=== PATIENT | male | born 1990 | race Caucasian/White ===

== ENCOUNTER → 2022-01-18 | Outpatient (CLI) | payer OTHER, MEDICARE ==
[~2022-01-18] MED LIST: ARIP10 PO; ARIP20 PO; ATEN25 PO; CITA20 PO; Cephalexin500 MG PO; FLUV50 PO; Fluvoxamine Ma100 MG PO; HYDACE5 PO; LEVSOD75 PO; LITH300C PO; LORA10ER PO; METO25ER PO; MONT10T PO; RANI150 PO
[2022-01-18 13:27] LABS: Albumin, Blood 3.7 g/dL (3.4-5.0); Albumin/Globulin Ratio 0.9 (0.8-1.8); Bilirubin, Total 0.4 mg/dL (0.1-1.0); Calcium, Blood 10.1 mg/dL (8.5-10.1); Creatinine, Blood 1.55 mg/dL (0.60-1.20); Free Thyroxine 2.17 ng/dL (0.70-1.60); Globulin, Blood 4.3 g/dL (2.2-4.0); Potassium, Blood 4.8 mmol/L (3.5-5.5); Thyroid Stimulating Hormone 0.016 uIU/mL (0.360-4.800)
[2022-01-18 15:30] LABS: Lithium 3.42 mmol/L (0.60-1.20)
[2022-01-19 07:11] LABS: HBSAG SCREEN Negative (Negative); HCV ANTIBODY <0.1 (0.0-0.9)
== END | disposition home or self-care (01) ==
LOC: LAB SHORT 13:03 → LAB 13:03
PROVIDERS: Physician Assistant Medical
DX: R25.1 Tremor, unspecified (principal); R89.2 Abnormal level of other drugs, medicaments and biological substances in specimens from other organs, systems and tissues; Z79.899 Other long term (current) drug therapy
CPT/HCPCS: 80053; 80178; 84439; 84443; 84481; 86803; 87340

== ENCOUNTER → 2022-01-20 | Outpatient (CLI) | payer OTHER, MEDICARE ==
[2022-01-20 09:17] LABS: Bun/Creatinine Ratio 21.8 (12.0-20.0); Calcium, Blood 9.8 mg/dL (8.5-10.1); Creatinine, Blood 0.87 mg/dL (0.60-1.20); Potassium, Blood 4.6 mmol/L (3.5-5.5)
[2022-01-20 10:37] LABS: Lithium 1.54 mmol/L (0.60-1.20)
== END | disposition home or self-care (01) ==
LOC: LAB SHORT 09:04 → LAB 09:04
PROVIDERS: General Practice
DX: R89.2 Abnormal level of other drugs, medicaments and biological substances in specimens from other organs, systems and tissues (principal)
CPT/HCPCS: 80048; 80178

== ENCOUNTER → 2022-03-21 | Outpatient (CLI) | payer OTHER, MEDICARE ==
[2022-03-21 18:47] LABS: Bacteria Rare /hpf; Red Blood Cells, Urine Not Seen /hpf (0-2); Squamous Epithelial Cells Rare /hpf (Few)
[2022-03-21 18:51] LABS: BASOPHILS ABSOLUTE AUTO 0.04 K/mm3 (0.00-0.23); BASOPHILS PERCENT AUTO 1 % (0-2); EOSINOPHILS ABSOLUTE AUTO 0.18 K/mm3 (0.00-0.68); EOSINOPHILS PERCENT AUTO 3 % (0-6); Hematocrit 37.1 % (37.0-53.0); Hemoglobin 12.2 g/dL (13.5-17.5); IMMATURE GRAN ABSOLUTE AUTO 0.04 K/mm3 (0.00-0.10); IMMATURE GRAN PERCENT AUTO 1 % (0-1); LYMPHOCYTES ABSOLUTE AUTO 0.78 K/mm3 (0.84-5.20); LYMPHOCYTES PERCENT AUTO 11 % (21-46); MONOCYTES ABSOLUTE AUTO 1.08 K/mm3 (0.16-1.47); MONOCYTES PERCENT AUTO 15 % (4-13); Mean Corpuscular HGB 28.3 pg (26.0-34.0); Mean Corpuscular HGB Conc 32.9 g/dL (31.5-36.5); Mean Corpuscular Volume 86 fL (80-100); Mean Platelet Volume 11.1 fL (9.1-12.4); NEUTROPHILS PERCENT AUTO 71 % (41-73); Platelet Count 299 K/mm3 (150-400); RDW Standard Deviation 43.9 fL (35.1-46.3); Red Blood Cell Count 4.31 M/mm3 (4.30-5.90); White Blood Cell Count 7.22 K/mm3 (4.00-11.30)
[2022-03-21 18:59] LABS: Bun/Creatinine Ratio 16.8 (12.0-20.0); Calcium, Blood 9.9 mg/dL (8.5-10.1); Creatinine, Blood 1.07 mg/dL (0.60-1.20); Potassium, Blood 3.6 mmol/L (3.5-5.5)
== END | disposition home or self-care (01) ==
LOC: LAB 18:40 → LAB SHORT 18:40
PROVIDERS: Physician Assistant Medical
DX: R10.84 Generalized abdominal pain (principal); R30.9 Painful micturition, unspecified; R82.79 Other abnormal findings on microbiological examination of urine
CPT/HCPCS: 80048; 81015; 85025; 87086

== ENCOUNTER 2023-04-29 11:23 | Observation (INO) | payer OTHER, MEDICARE ==
[~2023-04-29] VITALS: Ht 175.3 cm; Wt 136.1 kg
[2023-04-29] MEDS ORDERED: FLUV50 (12:31)
[2023-04-29] MEDS ORDERED: Naltrexone HCl50 MG PO (12:31)
[2023-04-29] MEDS ORDERED: METF500 (12:31)
[2023-04-29] MEDS ORDERED: METPHE10 PO (12:32)
[2023-04-29] MEDS ORDERED: QUET100 PO (12:32)
[2023-04-29] MEDS ORDERED: PARO20 (12:32)
[2023-04-29] MEDS ORDERED: ESCI20 PO (12:32)
[2023-04-29] MEDS ORDERED: VENL150ER PO (12:33)
[2023-04-29 13:05] LABS: Ethanol (Alcohol), Blood, Med <3 mg/dL; Salicylate <1.7 mg/dL (2.8-20.0); Thyroxine (T4) 5.8 ug/dL (4.5-12.1)
[2023-04-29 13:10] LABS: BASOPHILS ABSOLUTE AUTO 0.07 K/mm3 (0.00-0.23); BASOPHILS PERCENT AUTO 1 % (0-2); EOSINOPHILS ABSOLUTE AUTO 0.27 K/mm3 (0.00-0.68); EOSINOPHILS PERCENT AUTO 3 % (0-6); Hematocrit 43.4 % (37.0-53.0); Hemoglobin 14.9 g/dL (13.5-17.5); IMMATURE GRAN ABSOLUTE AUTO 0.06 K/mm3 (0.00-0.10); IMMATURE GRAN PERCENT AUTO 1 % (0-1); LYMPHOCYTES ABSOLUTE AUTO 1.49 K/mm3 (0.84-5.20); LYMPHOCYTES PERCENT AUTO 17 % (21-46); MONOCYTES ABSOLUTE AUTO 0.65 K/mm3 (0.16-1.47); MONOCYTES PERCENT AUTO 7 % (4-13); Mean Corpuscular HGB 29.5 pg (26.0-34.0); Mean Corpuscular HGB Conc 34.3 g/dL (31.5-36.5); Mean Corpuscular Volume 86 fL (80-100); Mean Platelet Volume 11.5 fL (9.1-12.4); NEUTROPHILS ABSOLUTE AUTO 6.39 K/mm3 (1.96-9.15); NEUTROPHILS PERCENT AUTO 72 % (41-73); Platelet Count 297 K/mm3 (150-400); RDW Coefficient Variation 13.4 % (11.7-14.2); RDW Standard Deviation 41.6 fL (35.1-46.3); Red Blood Cell Count 5.05 M/mm3 (4.30-5.90); White Blood Cell Count 8.93 K/mm3 (4.00-11.30)
[2023-04-29 13:21] LABS: Alanine Aminotransfer (ALT/SGP 61 U/L (12-78); Albumin/Globulin Ratio 1.1 (0.8-1.8); Alk Phos 92 U/L (50-136); Anion Gap 12 mmol/L (6-16); Aspartate Aminotrans (AST/SGOT 35 U/L (12-37); Bilirubin, Total 0.3 mg/dL (0.1-1.0); Blood Urea Nitrogen 15 mg/dL (8-24); Bun/Creatinine Ratio 17.4 (12.0-20.0); CO2, Blood 20 mmol/L (21-32); Calcium, Blood 9.7 mg/dL (8.5-10.1); Chloride, Blood 107 mmol/L (98-108); Creatinine, Blood 0.86 mg/dL (0.60-1.20); Globulin, Blood 3.8 g/dL (2.2-4.0); Glomerular Filtration Rate 118 (60-); Glucose, Blood 133 mg/dL (70-99); Potassium, Blood 4.3 mmol/L (3.5-5.5); Sodium, Blood 139 mmol/L (136-145); Total Protein, Blood 7.8 g/dL (6.4-8.2)
[2023-04-29 13:22] LABS: Acetaminophen, Random <2.0 ug/mL (10.0-30.0)
[2023-04-29 19:48] LABS: Source, Urine Clean Catch
[2023-04-29 19:51] LABS: Appearance, Urine Clear (Clear); Bilirubin, Urine Neg (Neg); Blood, Urine Neg (Neg); Color, Urine Yellow (P-Yellow); Glucose Qualitative, Urine Neg (Neg); Ketones, Urine Neg (Neg); Leukocyte Esterase, Urine 1+ (Neg); Nitrite, Urine Neg (Neg); Protein, Urine 1+ (Neg); Urobilinogen, Urine NORM (Normal)
[2023-04-29 20:01] LABS: Amorphous Light (0-Heavy); Bacteria Few /hpf; Mucus Light (0-Heavy); Red Blood Cells, Urine Not Seen /hpf (0-2); Squamous Epithelial Cells Not Seen /hpf (Few)
[2023-04-29 20:07] LABS: U Amphetamine Screen Not Detected; U Barbituate Screen Not Detected; U Benzodiazapine Screen DETECTED; U Buprenorphine Screen Not Detected; U Cannabinoids Screen Not Detected; U Cocaine Screen Not Detected; U Methadone Screen Not Detected; U Methamphetamine Screen Not Detected; U Opiates Screen Not Detected; U Oxycodone Screen Not Detected; U Phencyclidine Screen Not Detected; U Propoxyphene Screen Not Detected
[2023-05-01 10:48] LABS: Lithium <0.20 mmol/L (0.60-1.20)
[2023-05-02 08:26] VITALS: BP 143/80
[2023-05-02 09:26] LABS: Lithium 0.33 mmol/L (0.60-1.20)
== END 2023-05-02 12:02 | disposition home or self-care (01) ==
LOC: ER 11:23 → EOR 11:24
PROVIDERS: Psychiatry & Neurology Psychiatry; ADMIT Student in an Organized Health Care Education/Training Program
DX: R45.851 Suicidal ideations (principal); F84.0 Autistic disorder; E66.9 Obesity, unspecified; Z68.41 Body mass index [BMI] 40.0-44.9, adult
CPT/HCPCS: 80053; 80178; 81001; 84436; 84443; 85025; 87086; 93005; 93010; 94660; 96372; 99285-25; A9270; G0378; G0480; J1630; J2060

== ENCOUNTER → 2024-06-16 | Outpatient (CLI) | payer OTHER, MEDICARE ==
[~2024-06-16] MED LIST changes: +ESCI20 PO; +FLUV50; +METF500; +METPHE10 PO; +Naltrexone HCl50 MG PO; +PARO20; +QUET100 PO; +VENL150ER PO
[2024-06-16 12:04] LABS: BASOPHILS ABSOLUTE AUTO 0.07 K/mm3 (0.00-0.23); BASOPHILS PERCENT AUTO 1 % (0-2); EOSINOPHILS ABSOLUTE AUTO 0.63 K/mm3 (0.00-0.68); EOSINOPHILS PERCENT AUTO 7 % (0-6); Hematocrit 42.1 % (37.0-53.0); Hemoglobin 13.9 g/dL (13.5-17.5); IMMATURE GRAN ABSOLUTE AUTO 0.03 K/mm3 (0.00-0.10); IMMATURE GRAN PERCENT AUTO 0 % (0-1); LYMPHOCYTES ABSOLUTE AUTO 2.01 K/mm3 (0.84-5.20); LYMPHOCYTES PERCENT AUTO 22 % (21-46); MONOCYTES ABSOLUTE AUTO 0.68 K/mm3 (0.16-1.47); MONOCYTES PERCENT AUTO 8 % (4-13); Mean Corpuscular HGB 30.6 pg (26.0-34.0); Mean Corpuscular Volume 93 fL (80-100); Mean Platelet Volume 10.2 fL (9.1-12.4); NEUTROPHILS ABSOLUTE AUTO 5.68 K/mm3 (1.96-9.15); NEUTROPHILS PERCENT AUTO 62 % (41-73); Platelet Count 290 K/mm3 (150-400); RDW Coefficient Variation 13.6 % (11.7-14.2); RDW Standard Deviation 45.9 fL (35.1-46.3); Red Blood Cell Count 4.54 M/mm3 (4.30-5.90)
[2024-06-16 12:26] LABS: Albumin, Blood 3.8 g/dL (3.4-5.0); Albumin/Globulin Ratio 0.9 (0.8-1.8); Bilirubin, Total 0.3 mg/dL (0.1-1.0); Bun/Creatinine Ratio 9.9 (12.0-20.0); Calcium, Blood 9.7 mg/dL (8.5-10.1); Creatinine, Blood 1.01 mg/dL (0.60-1.20); Globulin, Blood 4.1 g/dL (2.2-4.0); Potassium, Blood 4.2 mmol/L (3.5-5.5); Thyroid Stimulating Hormone 2.48 uIU/mL (0.360-4.800); Total Protein, Blood 7.9 g/dL (6.4-8.2)
== END | disposition home or self-care (01) ==
LOC: LAB SHORT 12:00 → LAB 12:00
PROVIDERS: Physician Assistant
DX: Z51.81 Encounter for therapeutic drug level monitoring (principal); R10.9 Unspecified abdominal pain; R53.83 Other fatigue; Z79.899 Other long term (current) drug therapy
CPT/HCPCS: 80053; 80178; 83690; 84443; 85025

== ENCOUNTER 2025-03-06 12:53 | Day surgery (SDC) | payer OTHER, MEDICARE ==
[~2025-03-06] VITALS: Ht 160 cm; Wt 126.6 kg
[2025-03-06] MEDS ORDERED: propofoL 50 ML IV ONE (13:02)
[2025-03-06] MEDS ORDERED: LITH300C (13:04)
[2025-03-06] MEDS ORDERED: Adderall 30 MG30 MG (13:04)
[2025-03-06] MEDS ORDERED: Cymbalta20 MG (13:05)
[2025-03-06] MEDS ORDERED: MIRT30 (13:05)
[2025-03-06] MEDS ORDERED: Lactated Ringer's 1,000 ML IV ONE ×3 (13:27→15:14)
[2025-03-06] MEDS ORDERED: Dexmedetomidine HCL 200 MCG / 2 ML ONE (13:52)
[2025-03-06] MEDS ORDERED: NS 50 ML IV ONE (13:53)
[2025-03-06 15:14] VITALS: BP 121/99
== END 2025-03-06 14:55 | disposition home or self-care (01) ==
LOC: ORSCSDS 12:53
PROVIDERS: Internal Medicine Gastroenterology
PROC: 0DBK8ZX Excision of Ascending Colon, Via Natural or Artificial Opening Endoscopic, Diagnostic (ICD-10-PCS; principal; 2025-03-06 15:00)
DX: R10.32 Left lower quadrant pain (principal); K51.40 Inflammatory polyps of colon without complications; R19.4 Change in bowel habit; K57.30 Diverticulosis of large intestine without perforation or abscess without bleeding; E78.5 Hyperlipidemia, unspecified; G47.33 Obstructive sleep apnea (adult) (pediatric); I10 Essential (primary) hypertension; F84.0 Autistic disorder; E66.01 Morbid (severe) obesity due to excess calories; Z68.42 Body mass index [BMI] 45.0-49.9, adult; Z79.84 Long term (current) use of oral hypoglycemic drugs; Z79.899 Other long term (current) drug therapy
CPT/HCPCS: 82947; 88305; J2704; J7120

== ENCOUNTER 2025-05-19 06:47 | Day surgery (SDC) | payer OTHER, MEDICARE ==
[~2025-05-19] VITALS: Ht 160 cm; Wt 123.9 kg
[~2025-05-19 06:47] MED LIST changes: +Adderall 30 MG30 MG; +Cymbalta20 MG; +LITH300C; +MIRT30; +NS 500 ML IV ONE
[2025-05-19] MEDS ORDERED: CeFAZolin Sodium 3,000 MG VIAL ONE (07:08)
[2025-05-19] MEDS ORDERED: CAPLYTA42 MG PO (07:13)
[2025-05-19] MEDS ORDERED: NS 500 ML IV ONE (07:20)
--- NOTE | 2025-05-19 07:30 | NUR ---
05/19/25 0730 Judi Ortiz TIME OUT PERFORMED AT BEDSIDE WITH DR DAVID AT 0727 IMMEDIATELY PRIOR TO INJECTION OF 7ML OF SOLUTION CONSISTING OF 9ML 1% LIDOCAINE WITH EPI [id number] AND 1ML 8.4% SODIUM BICARBONATE INTO L HAND. 7ML OF SOLUTION ALSO INJECTED INTO R HAND AT 0728. PATIENT TOLERATED PROCEDURE WELL. RODNEY BUTLER AT BEDSIDE.
[2025-05-19 09:10] VITALS: BP 159/89
== END 2025-05-19 09:03 | disposition home or self-care (01) ==
LOC: ORSCSDS 06:47
PROVIDERS: Orthopaedic Surgery
PROC: 01N54ZZ Release Median Nerve, Percutaneous Endoscopic Approach (ICD-10-PCS; principal; 2025-05-19 08:15)
DX: G56.03 Carpal tunnel syndrome, bilateral upper limbs (principal); F41.9 Anxiety disorder, unspecified; F32.A Depression, unspecified; G47.30 Sleep apnea, unspecified; G47.33 Obstructive sleep apnea (adult) (pediatric); F84.5 Asperger's syndrome; E66.9 Obesity, unspecified; Z68.42 Body mass index [BMI] 45.0-49.9, adult; Z79.84 Long term (current) use of oral hypoglycemic drugs; Z79.899 Other long term (current) drug therapy
CPT/HCPCS: 82947; J0690; J7040

== ENCOUNTER 2025-06-19 19:24 | Emergency (ER) | payer OTHER, MEDICARE ==
[~2025-06-19] VITALS: Ht 160 cm; Wt 124.7 kg
[~2025-06-19 19:24] MED LIST changes: +CAPLYTA42 MG PO; -NS 500 ML IV ONE
[2025-06-19 19:39] VITALS: BP 162/111
[2025-06-19 20:39] LABS: Ethanol (Alcohol), Blood, Med <3 mg/dL; Salicylate 1.9 mg/dL (2.8-20.0)
[2025-06-19 20:45] LABS: BASOPHILS ABSOLUTE AUTO 0.08 K/mm3 (0.00-0.23); BASOPHILS PERCENT AUTO 1 % (0-2); EOSINOPHILS ABSOLUTE AUTO 0.70 K/mm3 (0.00-0.68); EOSINOPHILS PERCENT AUTO 6 % (0-6); Hematocrit 44.8 % (37.0-53.0); Hemoglobin 14.2 g/dL (13.5-17.5); IMMATURE GRAN ABSOLUTE AUTO 0.06 K/mm3 (0.00-0.10); IMMATURE GRAN PERCENT AUTO 1 % (0-1); LYMPHOCYTES ABSOLUTE AUTO 2.26 K/mm3 (0.84-5.20); LYMPHOCYTES PERCENT AUTO 18 % (21-46); MONOCYTES ABSOLUTE AUTO 0.93 K/mm3 (0.16-1.47); MONOCYTES PERCENT AUTO 7 % (4-13); Mean Corpuscular HGB Conc 31.7 g/dL (31.5-36.5); Mean Corpuscular Volume 92 fL (80-100); NEUTROPHILS ABSOLUTE AUTO 8.79 K/mm3 (1.96-9.15); NEUTROPHILS PERCENT AUTO 69 % (41-73); NRBC ABSOLUTE 0.00 K/mm3 (0.00-0.02); NRBC Auto 0.0 /100 WBC (0.0-0.2); Platelet Count 315 K/mm3 (150-400); RDW Coefficient Variation 13.0 % (11.7-14.2); RDW Standard Deviation 43.8 fL (35.1-46.3)
[2025-06-19 21:07] LABS: Acetaminophen, Random <2.0 ug/mL (10.0-30.0); Alanine Aminotransfer (ALT/SGP 59 U/L (12-78); Albumin, Blood 3.7 g/dL (3.4-5.0); Albumin/Globulin Ratio 0.8 (0.8-1.8); Anion Gap 10 mmol/L (3-11); Aspartate Aminotrans (AST/SGOT 30 U/L (12-37); Bilirubin, Total 0.3 mg/dL (0.1-1.0); Blood Urea Nitrogen 11 mg/dL (8-24); CO2, Blood 26 mmol/L (21-32); Calcium, Blood 9.9 mg/dL (8.5-10.1); Chloride, Blood 107 mmol/L (98-108); Creatinine, Blood 0.78 mg/dL (0.60-1.20); Globulin, Blood 4.6 g/dL (2.2-4.0); Glucose, Blood 118 mg/dL (70-99); Potassium, Blood 3.7 mmol/L (3.5-5.5); Sodium, Blood 139 mmol/L (136-145); Total Protein, Blood 8.3 g/dL (6.4-8.2)
== END 2025-06-19 21:34 | disposition left against medical advice (07) ==
LOC: ER 19:24
PROVIDERS: Student in an Organized Health Care Education/Training Program
DX: R45.851 Suicidal ideations (principal); Z53.21 Procedure and treatment not carried out due to patient leaving prior to being seen by health care provider
CPT/HCPCS: 80053; 80320; 85025; 99282; G0480

== ENCOUNTER 2025-07-28 22:12 | Emergency (ER) | payer OTHER, MEDICARE ==
[~2025-07-28] VITALS: Ht 170.2 cm; Wt 127.0 kg
[2025-07-28 22:27] VITALS: BP 163/90
== END 2025-07-28 23:40 | disposition home or self-care (01) ==
LOC: ER 22:12
DX: Z03.821 Encounter for observation for suspected ingested foreign body ruled out (principal); I10 Essential (primary) hypertension; J45.909 Unspecified asthma, uncomplicated; Z79.84 Long term (current) use of oral hypoglycemic drugs; Z79.899 Other long term (current) drug therapy
CPT/HCPCS: 70360; 71045; 99283-25